=== PATIENT | male | born 1950 | race Caucasian/White ===

== ENCOUNTER 2017-05-15 07:14 | Emergency (ER) | payer MEDICARE, BC, OTHER ==
[2017-05-15 07:23] VITALS: BP 145/81
--- NOTE | 2017-05-15 07:39 | UC ---
Throat Pain/Nasal Elio HPI - HPI Summary HPI Summary: 66 year old male with sore throat Sore throat developed last night. Feels tonsils are swollen. Denies fever/chills. Works at [employer]. [ End ] - History of Current Complaint Chief Complaint: UCGeneralIllness Stated Complaint: SORE THROAT Time Seen by Provider: 05/15/17 07:31 Hx Obtained From: Patient Onset/Duration: Sudden Onset - Allergies/Home Medications Allergies/Adverse Reactions: Allergies Allergy/AdvReac Type Severity Reaction Status Date / Time No Known Allergies Allergy Verified 05/15/17 07:18 Home Medications: Home Medications Ranitidine TAB (NF) [Zantac TAB (NF)] 1 tab DAILY 05/15/17 [History Confirmed ] Telmisartan 40 mg PO DAILY 05/15/17 [History Confirmed 05/15/17] PMH/Surg Hx/FS Hx/Imm Hx Previously Healthy: Yes Cardiovascular History: Hypertension - Surgical History Surgical History: Yes Surgery Procedure, Year, and Place: [place] [id number] - Social History Occupation: Retired Lives: With Family Alcohol Use: Weekly Alcohol Amount: 4xweek; 1 drink/night Substance Use Type: None Smoking Status (MU): Never Smoked Tobacco - Immunization History Most Recent Influenza Vaccination: 2017 Review of Systems ENT: Sore Throat All Other Systems Reviewed And Are Negative: Yes Physical Exam Triage Information Reviewed: Yes Appearance: Well-Appearing, No Pain Distress, Well-Nourished Vital Signs: Initial Vital Signs Temp 96.9 F 05/15/17 07:20 Pulse 80 05/15/17 07:20 Resp 16 05/15/17 07:20 BP 145/81 05/15/17 07:20 Pulse Ox 99 05/15/17 07:20 Vital Signs Reviewed: Yes Eye Exam: Normal ENT Exam: Normal ENT: Positive: Hearing grossly normal, Pharyngeal erythema, TMs normal. Negative: Tonsillar exudate Dental Exam: Normal Neck exam: Normal Neck: Positive: 1 Respiratory Exam: Normal Cardiovascular Exam: Normal Musculoskeletal Exam: Normal Neurological Exam: Normal Psychological Exam: Normal Skin Exam: Normal Throat Pain/Nasal Course/Dx - Differential Dx/Diagnosis Differential Diagnosis/HQI/PQRI: Pharyngitis, Sinusitis, Tonsillitis, URI Provider Diagnoses: Viral Pharyngitis Discharge - Discharge Plan Condition: Good Disposition: HOME Referrals: Josie ASENCIO,Jeramy Cloud [Primary Care Provider] - 4 Days
== END 2017-05-15 08:11 | disposition home or self-care (01) ==
LOC: UCCORT 07:14
DX: J02.8 Acute pharyngitis due to other specified organisms (principal); I10 Essential (primary) hypertension
CPT/HCPCS: 87651; 99202; G0463